=== PATIENT | female | born 1960 | race Hispanic/Latino ===

== ENCOUNTER 2016-09-28 13:29 | Emergency (ER) | payer MEDICARE ==
[2016-09-28] MEDS ORDERED: ATIVAN IV ONE (14:12)
--- NOTE | 2016-09-28 14:22 | Emergency Department Report ---
HPI - General Chief Complaint: Seizure Time Seen by Provider: 09/28/16 14:00 - HPI HPI: Room 8 The patient is a 56-year-old female presenting with a chief complaint of seizure. The patient states she came to the emergency department today because she has had a seizure. The patient states her last seizure before today was approximately 2 months ago. The patient states she is only taking her Depakote intermittently and not daily. Patient currently states she just feels jittery. Location: Central nervous system Duration: Unknown Quality: [see above] Severity: Unknown Modifying factors: [see above] Context: [see above] Mode of transportation: [not driving] ED Past Medical Hx - Past Medical History Hx GERD: Yes Hx Arthritis: Yes (generalized) Hx Seizures: Yes Hx Psychiatric Treatment: Yes (multiple IP and OP tx, BiPolar, PTSD) Hx COPD: Yes Hx HIV: Yes Additional medical history: Chronic Back Pain (herniated disc). HIV positive has never had an elevated viral load or low T cells. Has never been on medication. pneumonia, Hep C - Surgical History Additional Surgical History: Rotator Cuff. Hysterectomy 2003. Elbow Surgery - Family History Family history: no significant - Social History Smoking Status: Current Every Day Smoker (1/2 pack per day) Substance Use Type: None (denies illicit drug use) - Medications Home Medications: Home Medications Medication Instructions Recorded Confirmed Last Taken Type Mirtazapine [Remeron] 45 mg PO QHS 02/15/13 03/16/16 07/05/14 History Gabapentin [Neurontin] 600 mg PO Q8HR 03/16/16 03/16/16 Unknown History Tizanidine HCl [Zanaflex] 2 mg PO TID PRN 03/16/16 03/16/16 Unknown History clonazePAM [clonazePAM] 1 tab PO TID 03/16/16 03/16/16 Unknown History ALBUTEROL Inhaler [ProAir HFA 2 puff IH QID PRN #1 inhalation 04/02/16 Unknown Rx Inhaler] Levofloxacin [Levaquin TAB] 500 mg PO QDAY #7 tablet 04/02/[address] [Depakote Dr] 500 mg PO TID #90 tablet 09/28/16 Unknown Rx ED Review of Systems ROS: Stated complaint: SEIZURE Other details as noted in HPI Comment: All other systems reviewed and negative Constitutional: denies: chills, fever Eyes: denies: eye pain, eye discharge, vision change ENT: denies: ear pain, throat pain Respiratory: denies: cough, shortness of breath, wheezing Cardiovascular: denies: chest pain, palpitations Endocrine: no symptoms reported Gastrointestinal: denies: abdominal pain, nausea, diarrhea Genitourinary: denies: urgency, dysuria, discharge Musculoskeletal: denies: back pain, joint swelling, arthralgia Skin: denies: rash, lesions Neurological: other (seizure, feels jittery) Psychiatric: denies: anxiety, depression Hematological/Lymphatic: denies: easy bleeding, easy bruising Physical Exam - Physical Exam Vital Signs: Vital Signs 09/28/16 13:39 Temperature 98.7 F Pulse Rate 100 H Respiratory 14 Rate Blood Pressure 128/81 O2 Sat by Pulse 97 Oximetry Physical Exam: GENERAL: The patient is well-developed well-nourished female lying on stretcher not appearing to be in acute distress. [] HEENT: Normocephalic. Atraumatic. Extraocular motions are intact. Patient has moist mucous membranes. NECK: Supple. No meningitic signs are noted. Trachea midline CHEST/LUNGS: Clear to auscultation. There is no respiratory distress noted. HEART/CARDIOVASCULAR: Regular. There is no tachycardia. There is no gallop rub or murmur. ABDOMEN: Abdomen is soft, nontender. Patient has normal bowel sounds. There is no abdominal distention. SKIN: There is no rash. There is no edema. There is no diaphoresis. NEURO: The patient is awake, alert, and oriented. The patient is cooperative. The patient has no focal neurologic deficits. The patient has normal speech. Cranial nerves II through XII grossly intact, no drift MUSCULOSKELETAL: There is no evidence of acute injury. ED Course Vital Signs 09/28/16 13:39 Temperature 98.7 F Pulse Rate 100 H Respiratory 14 Rate Blood Pressure 128/81 O2 Sat by Pulse 97 Oximetry ED Medical Decision Making - Lab Data Result diagrams: 09/28/16 15:05 09/28/16 15:05 Laboratory Tests 09/28/16 09/28/16 09/28/16 15:05 15:05 15:05 WBC 8.1 RBC 4.97 Hgb 14.7 H Hct 45.2 H MCV 91 MCH 30 MCHC 33 RDW 13.5 Plt Count 248 Lymph % (Auto) 14.9 [place] % (Auto) 7.0 Eos % (Auto) 0.2 Baso % (Auto) 0.2 Lymph # 1.2 [place] # 0.6 Eos # 0.0 Baso # 0.0 Seg Neutrophils % 77.7 H Seg Neutrophils # 6.3 Sodium 140 Potassium 4.4 Chloride 99.7 Carbon Dioxide 27 Anion Gap 18 BUN 11 Creatinine 0.8 Estimated GFR > 60 BUN/Creatinine Ratio 13.75 Glucose 96 Calcium 10.0 Magnesium 1.9 Valproic Acid < 2.8 L - Differential Diagnosis epilepsy Critical care attestation.: If time is entered above; I have spent that time in minutes in the direct care of this critically ill patient, excluding procedure time. ED Disposition Clinical Impression: Seizure disorder, Seizure secondary to subtherapeutic anticonvulsant medication Disposition: DISCHARGED TO HOME OR SELFCARE Is pt being admited?: No Does the pt Need Aspirin: No Condition: Stable Instructions: Epilepsy (ED) Additional Instructions: Return to the emergency department immediately should you develop worsening symptoms, fever, inability to tolerate food or liquid or any other concerns. Prescriptions: Divalproex [Depakote ] 500 mg PO TID #90 tablet Referrals: PRIMARY CARE, [Primary Care Provider] - 3-5 Days UZMA AL MD [Staff Physician] - 3-5 Days (Dr. Al is a neurologist. Please follow up with him for further evaluation) Time of Disposition: 16:18
[2016-09-28 15:34] LABS: Anion Gap 18 mmol/L; BUN/Creatinine Ratio 13.75; Blood Urea Nitrogen 11 mg/dL (7-17); Carbon Dioxide 27 mmol/L (22-30); Chloride 99.7 mmol/L (98-107); Glucose 96 mg/dL (65-100); Magnesium 1.9 mg/dL (1.7-2.3); Potassium 4.4 mmol/L (3.6-5.0); Sodium 140 mmol/L (137-145)
[2016-09-28 15:43] LABS: Basophils % (Auto) 0.2 % (0.0-1.8); Eosinophils % (Auto) 0.2 % (0.0-4.3); Hematocrit 45.2 % (30.3-42.9); Hemoglobin 14.7 gm/dl (10.1-14.3); Mean Corpuscular HGB Conc 33 % (30-34); Mean Corpuscular Hemoglobin 30 pg (28-32); Mean Corpuscular Volume 91 fl (79-97); Platelet Count 248 K/mm3 (140-440); Red Blood Count 4.97 M/mm3 (3.65-5.03); Red Cell Distribution Width 13.5 % (13.2-15.2); White Blood Count 8.1 K/mm3 (4.5-11.0)
[2016-09-28] MEDS ORDERED: DepaCON 500 MG in NACL 0.9% 100 ML IV ONE (16:13)
[2016-09-28] MEDS ORDERED: KEPPRA 1,000 MG/NS 0.75% 100ML 1,000 MG/100 ML BAG IV ONE (16:13)
[2016-09-28 19:02] VITALS: BP 122/68
== END 2016-09-28 19:04 | disposition home or self-care (01) ==
LOC: ED 13:29
DX: G40.909 Epilepsy, unspecified, not intractable, without status epilepticus (principal); R79.1 Abnormal coagulation profile; F17.210 Nicotine dependence, cigarettes, uncomplicated; K21.9 Gastro-esophageal reflux disease without esophagitis; M19.90 Unspecified osteoarthritis, unspecified site; J44.9 Chronic obstructive pulmonary disease, unspecified; G89.29 Other chronic pain; J18.9 Pneumonia, unspecified organism
CPT/HCPCS: 36415; 80048; 80164; 83735; 85025; 96365; 96366; 96368; 96375; 99284; J1953; J2060

== ENCOUNTER 2017-01-23 07:58 | Emergency (ER) | payer MEDICARE ==
[2017-01-23 09:20] LABS: Chloride 105.9 mmol/L (98-107); Potassium 5.5 mmol/L (3.6-5.0)
[2017-01-23] MEDS ORDERED: D50W (25GM) IV ONE (10:23)
[2017-01-23] MEDS ORDERED: BACTRIM DS PO ONE (10:23)
[2017-01-23] MEDS ORDERED: KIONEX PO ONE (10:23)
[2017-01-23] MEDS ORDERED: PROVENTIL IH ONE (10:23)
[2017-01-23] MEDS ORDERED: PROTONIX PO ONE (10:23)
--- NOTE | 2017-01-23 10:27 | Emergency Department Report ---
ED General Adult HPI - General Chief complaint: Medical Clearance Stated complaint: AMS Time Seen by Provider: 01/23/17 10:16 Source: patient, RN notes reviewed, old records reviewed Mode of arrival: Stretcher Limitations: No Limitations - History of Present Illness Initial comments: This is a 56-year-old female. She is previously unknown to me. She is sent to the ER for evaluation of hyperkalemia. Past medical history includes eczema, hepatitis C, HIV, gastroesophageal reflux disease, chronic pain secondary to DJD. Medications include the following: Protonix, Bactrim, hydrocortisone cream, Depakote, Remeron, subutex, latuda The patient is sent to the ER for evaluation of incidental hyperkalemia noted on laboratory studies. The patient denies headache, neck pain, chest pain, abdominal pain, shortness of breath, irritative and obstructive urinary symptoms. Her only complaint is chronic back pain, which is not new, worsening or different. She reports no change in her urinary output. Patient recently had laboratory studies drawn which demonstrated hyperkalemia, with a potassium of 6.7. She was sent to the ER for further evaluation and management. She reports that her only new medication is latuda. Improves with: none Worsens with: none Associated Symptoms: denies other symptoms, other (patient complains of chronic back pain, which is not new, worsening or different) - Related Data Home Medications Medication Instructions Recorded Confirmed Last Taken Mirtazapine [Remeron] 45 mg PO QHS 02/15/13 03/16/16 07/05/14 Gabapentin [Neurontin] 600 mg PO Q8HR 03/16/16 03/16/16 Unknown Tizanidine HCl [Zanaflex] 2 mg PO TID PRN 03/16/16 03/16/16 Unknown clonazePAM [clonazePAM] 1 tab PO TID 03/16/16 03/16/16 Unknown Previous Rx's Medication Instructions Recorded Last Taken Type ALBUTEROL Inhaler [ProAir HFA 2 puff IH QID PRN #1 inhalation 04/02/16 Unknown Rx Inhaler] Levofloxacin [Levaquin TAB] 500 mg PO QDAY #7 tablet 04/02/[address] [Depakote Dr] 500 mg PO TID #90 tablet 09/28/16 Unknown Rx Sodium Polystyrene Sulfonate 15 gm PO QDAY #7 powd.pack 01/23/17 Unknown Rx [Kalexate] Allergies Allergy/AdvReac Type Severity Reaction Status Date / Time cephalexin monohydrate Allergy Hives Verified 09/28/16 13:42 [From Keflex] meperidine HCl [From Demerol] Allergy Seizure Verified 09/28/16 13:42 ED Review of Systems ROS: Stated complaint: AMS Other details as noted in HPI Constitutional: denies: diaphoresis, malaise Eyes: denies: vision change ENT: denies: epistaxis Respiratory: denies: cough Cardiovascular: denies: chest pain Gastrointestinal: denies: abdominal pain Genitourinary: denies: dysuria Musculoskeletal: back pain Skin: denies: rash Neurological: denies: headache Psychiatric: anxiety ED Past Medical Hx - Past Medical History Hx Congestive Heart Failure: No Hx Diabetes: No Hx GERD: Yes Hx Arthritis: Yes (generalized) Hx Seizures: Yes Hx Psychiatric Treatment: Yes (multiple IP and OP tx, BiPolar, PTSD) Hx Asthma: No Hx COPD: Yes Hx HIV: Yes Additional medical history: Chronic Back Pain (herniated disc). HIV positive has never had an elevated viral load or low T cells. Has never been on medication. pneumonia, Hep C - Surgical History Additional Surgical History: Rotator Cuff. Hysterectomy 2003. Elbow Surgery - Social History Smoking Status: Current Every Day Smoker - Medications Home Medications: Home Medications Medication Instructions Recorded Confirmed Last Taken Type Mirtazapine [Remeron] 45 mg PO QHS 02/15/13 03/16/16 07/05/14 History Gabapentin [Neurontin] 600 mg PO Q8HR 03/16/16 03/16/16 Unknown History Tizanidine HCl [Zanaflex] 2 mg PO TID PRN 03/16/16 03/16/16 Unknown History clonazePAM [clonazePAM] 1 tab PO TID 03/16/16 03/16/16 Unknown History ALBUTEROL Inhaler [ProAir HFA 2 puff IH QID PRN #1 inhalation 04/02/16 Unknown Rx Inhaler] Levofloxacin [Levaquin TAB] 500 mg PO QDAY #7 tablet 04/02/[address] [Depakote Dr] 500 mg PO TID #90 tablet 09/28/16 Unknown Rx Sodium Polystyrene Sulfonate 15 gm PO QDAY #7 powd.pack 01/23/17 Unknown Rx [Kalexate] ED Physical Exam - General Limitations: No Limitations General appearance: alert, in no apparent distress - Head Head exam: Present: atraumatic, normocephalic - Eye Eye exam: Present: normal appearance, EOMI. Absent: nystagmus - ENT ENT exam: Present: normal exam, normal orophraynx, mucous membranes moist, normal external ear exam - Neck Neck exam: Present: normal inspection, full ROM. Absent: tenderness, meningismus - Respiratory Respiratory exam: Present: normal lung sounds bilaterally. Absent: respiratory distress, wheezes, rales, rhonchi, stridor, chest wall tenderness, accessory muscle use, decreased breath sounds, prolonged expiratory - Cardiovascular Cardiovascular Exam: Present: regular rate, normal rhythm, normal heart sounds. Absent: bradycardia, tachycardia, irregular rhythm, systolic murmur, diastolic murmur, rubs, gallop - GI/Abdominal GI/Abdominal exam: Present: soft, normal bowel sounds. Absent: distended, tenderness, guarding, rebound, rigid, pulsatile mass - Extremities Exam Extremities exam: Present: normal inspection, full ROM, normal capillary refill. Absent: pedal edema, joint swelling, calf tenderness - Back Exam Back exam: Present: normal inspection, full ROM. Absent: tenderness, CVA tenderness (R), CVA tenderness (L), muscle spasm, paraspinal tenderness, vertebral tenderness - Neurological Exam Neurological exam: Present: alert, oriented X3, normal gait, other (Extraocular movements intact. Tongue midline. No facial droop. Facial sensation intact to light touch in the V1, V2, V3 distribution bilaterally. 5 and 5 strength in 4 extremities.. Sensation is intact to light touch in 4 extremities.). Absent : motor sensory deficit - Psychiatric Psychiatric exam: Present: anxious - Skin Skin exam: Present: warm, dry, intact, normal color. Absent: rash ED Course Vital Signs 01/23/17 01/23/17 01/23/17 07:54 08:00 08:30 Temperature 98.0 F Pulse Rate 107 H 102 H Respiratory 15 12 Rate Blood Pressure 135/89 135/89 126/83 O2 Sat by Pulse 95 Oximetry 01/23/17 01/23/17 01/23/17 09:00 09:30 10:29 Temperature Pulse Rate 93 H 100 H 95 H Respiratory 11 L 10 L 12 Rate Blood Pressure 125/89 122/89 122/89 O2 Sat by Pulse 98 98 97 Oximetry 01/23/17 01/23/17 01/23/17 10:30 11:00 11:32 Temperature Pulse Rate 103 H 97 H 115 H Respiratory 13 12 14 Rate Blood Pressure 125/87 132/93 146/86 O2 Sat by Pulse 96 97 93 Oximetry 01/23/17 12:00 Temperature Pulse Rate 103 H Respiratory 13 Rate Blood Pressure 146/86 O2 Sat by Pulse 97 Oximetry - Reevaluation(s) Reevaluation #1: 01/23/17 20:09 prior to discharge, the patient did have some symptoms of narcotic withdrawal. She was treated symptomatically, her symptoms resolved, and she was able to tolerate liquid feeds. ED Medical Decision Making - Lab Data Result diagrams: 01/23/17 08:52 Vital Signs 01/23/17 01/23/17 01/23/17 07:54 08:00 08:30 Temperature 98.0 F Pulse Rate 107 H 102 H Respiratory 15 12 Rate Blood Pressure 135/89 135/89 126/83 O2 Sat by Pulse 95 Oximetry 01/23/17 01/23/17 01/23/17 09:00 10:29 10:30 Temperature Pulse Rate 93 H 95 H 103 H Respiratory 11 L 12 13 Rate Blood Pressure 125/89 122/89 125/87 O2 Sat by Pulse 98 97 96 Oximetry Lab Results 01/23/17 Range/Units 08:52 Sodium 141 (137-145) mmol/L Potassium 5.5 H (3.6-5.0) mmol/L Chloride 105.9 (98-107) mmol/L Carbon Dioxide 22 (22-30) mmol/L Anion Gap 19 mmol/L BUN 29 H (7-17) mg/dL Creatinine 1.0 (0.7-1.2) mg/dL Estimated GFR 58 ml/min BUN/Creatinine Ratio 29.00 % Glucose 84 (65-100) mg/dL Calcium 9.0 (8.4-10.2) mg/dL - EKG Data 01/23/17 11:12 sinus tachycardia, 103 bpm, normal axis, QTC 471 ms, having chest pain, not morphologically consistent with STEMI, - Medical Decision Making Differential diagnosis: Laboratory error, renal insufficiency, dehydration, incidental hyperkalemia Assessment and plan: 56-year-old female with new-onset hyperkalemia in the context of normal renal function. Renal function in this ER demonstrates femoral creatinine, with a mildly elevated potassium of 5.5. The patient is afebrile with reassuring vital signs and her tachycardia has resolved my physical examination. She will be treated empirically with Kayexalate, albuterol, dextrose, insulin. She will be discharged with one week of Kayexalate prescription. Review of her prescription medications does not indicate any agents that would predispose to hyperkalemia, with the exception of her Bactrim.. She is suitable to return to her psychiatric facility. She is on Bactrim for her HIV, and therefore she should follow up with her infectious disease specialist to be evaluated for suitable alternative for prophylaxis. Critical care attestation.: If time is entered above; I have spent that time in minutes in the direct care of this critically ill patient, excluding procedure time. ED Disposition Clinical Impression: Hyperkalemia Disposition: DC/TX-65 PSY HOSP/PSY UNIT Is pt being admited?: No Does the pt Need Aspirin: No Condition: Stable Additional Instructions: continue current outpatient medications. Follow up with an infectious disease specialist within the next 5-7 days. Bactrim medication/prophylaxis may predispose to hyperkalemia. Patient's last day of Bactrim ingestion is today, January 23. Take the Kayexalate as directed. Have repeat laboratory studies drawn in the next 4-5 days. Specifically, have a repeat basic metabolic panel drawn to assess for potassium levels and renal function. Bactrim is the most likely etiology for the patient's hyperkalemia. Return to the ER right away with fevers, chills, chest pain, shortness of breath, intractable nausea or vomiting, confusion, inability to tolerate liquid feeds. Prescriptions: Sodium Polystyrene Sulfonate [Kalexate] 15 gm PO QDAY #7 powd.pack Referrals: PRIMARY CAREMD [Primary Care Provider] - 3-5 Days ANUPAM DUEÑAS MD [Staff Physician] - 3-5 Days ALCIRA CONTRERAS MD [Staff Physician] - 3-5 Days
[2017-01-23] MEDS ORDERED: ATIVAN IM ONE (11:38)
[2017-01-23] MEDS ORDERED: CATAPRES PO ONE (11:38)
[2017-01-23] MEDS ORDERED: ATIVAN ONE (11:40)
[2017-01-23] MEDS ORDERED: CATAPRES ONE (11:41)
[2017-01-23 12:22] VITALS: BP 146/86
== END 2017-01-23 12:20 ==
LOC: ED 07:58
DX: E87.5 Hyperkalemia (principal); K21.9 Gastro-esophageal reflux disease without esophagitis; J44.9 Chronic obstructive pulmonary disease, unspecified; F17.200 Nicotine dependence, unspecified, uncomplicated
CPT/HCPCS: 36415; 80048; 82962; 93005; 93010; 96372; 96374; 96375; 99284; J2060; J1815

== ENCOUNTER 2017-10-10 12:14 | Emergency (ER) | payer MEDICARE ==
[2017-10-10] MEDS ORDERED: NORCO 5/325 PO ONE (14:59)
[2017-10-10] MEDS ORDERED: XYLOCAINE 1% 20 mL INFILTRATI ONE (14:59)
--- NOTE | 2017-10-10 15:01 | Emergency Department Report ---
Abscess Boil HPI - HPI Chief Complaint: Skin/Abscess/Foreign Body Stated Complaint: ABCESS IN PRIVATE AREA Time Seen by Provider: 10/10/17 14:58 Duration: >1 Week Location: Other (labial) Severity: Moderate History: Yes Pain, Yes Purulent Drainage, Yes Previous History, No Fever, No Numbness, No Foreign Body, No Insect Bite HPI: Pt has had abscess to R groin x 2 weeks that drained some a few days ago but has started to enlarge again. Home Medications: Home Medications Medication Instructions Recorded Confirmed Last Taken Mirtazapine [Remeron] 45 mg PO QHS 02/15/13 03/16/16 07/05/14 Gabapentin [Neurontin] 600 mg PO Q8HR 03/16/16 03/16/16 Unknown Tizanidine HCl [Zanaflex] 2 mg PO TID PRN 03/16/16 03/16/16 Unknown clonazePAM 1 tab PO TID 03/16/16 03/16/16 Unknown Previous Rx's Medication Instructions Recorded Last Taken Type ALBUTEROL Inhaler [ProAir HFA 2 puff IH QID PRN #1 inhalation 04/02/16 Unknown Rx Inhaler] Levofloxacin [Levaquin TAB] 500 mg PO QDAY #7 tablet 04/02/[address] [Kaye Antonio] 500 mg PO TID #90 tablet 09/28/16 Unknown Rx Sodium Polystyrene Sulfonate 15 gm PO QDAY #7 powd.pack 01/23/17 Unknown Rx [Kalexate] Acetaminophen/Codeine [Tylenol 1 tab PO Q6H PRN #12 tab 10/10/17 Unknown Rx /Codeine # 3 tab] Sulfamethoxazole/Trimethoprim 1 each PO BID #20 tablet 10/10/17 Unknown Rx [Bactrim DS TAB] Allergies/Adverse Reactions: Allergies Allergy/AdvReac Type Severity Reaction Status Date / Time cephalexin monohydrate Allergy Hives Verified 10/10/17 12:16 [From Keflex] meperidine HCl [From Demerol] Allergy Seizure Verified 10/10/17 12:16 ED Review of Systems ROS: Stated complaint: ABCESS IN PRIVATE AREA Other details as noted in HPI Comment: All other systems reviewed and negative Constitutional: denies: chills, fever Eyes: denies: eye pain, eye discharge, vision change ENT: denies: ear pain, throat pain Respiratory: denies: cough, shortness of breath, wheezing Cardiovascular: denies: chest pain, palpitations Endocrine: no symptoms reported Gastrointestinal: denies: abdominal pain, nausea, diarrhea Genitourinary: denies: urgency, dysuria, discharge Musculoskeletal: denies: back pain, joint swelling, arthralgia Skin: denies: rash, lesions Neurological: denies: headache, weakness, paresthesias Psychiatric: denies: anxiety, depression Hematological/Lymphatic: denies: easy bleeding, easy bruising ED Past Medical Hx - Past Medical History Hx Congestive Heart Failure: No Hx Diabetes: No Hx GERD: Yes Hx Arthritis: Yes (generalized) Hx Seizures: Yes Hx Psychiatric Treatment: Yes (multiple IP and OP tx, BiPolar, PTSD) Hx Asthma: No Hx COPD: Yes Hx HIV: Yes Additional medical history: Chronic Back Pain (herniated disc). HIV positive has never had an elevated viral load or low T cells. Has never been on medication. pneumonia, Hep C - Surgical History Additional Surgical History: Rotator Cuff. Hysterectomy 2003. Elbow Surgery - Social History Smoking Status: Current Every Day Smoker Substance Use Type: None - Medications Home Medications: Home Medications Medication Instructions Recorded Confirmed Last Taken Type Mirtazapine [Remeron] 45 mg PO QHS 02/15/13 03/16/16 07/05/14 History Gabapentin [Neurontin] 600 mg PO Q8HR 03/16/16 03/16/16 Unknown History Tizanidine HCl [Zanaflex] 2 mg PO TID PRN 03/16/16 03/16/16 Unknown History clonazePAM 1 tab PO TID 03/16/16 03/16/16 Unknown History ALBUTEROL Inhaler [ProAir HFA 2 puff IH QID PRN #1 inhalation 04/02/16 Unknown Rx Inhaler] Levofloxacin [Levaquin TAB] 500 mg PO QDAY #7 tablet 04/02/[address] [Depmilady Dr] 500 mg PO TID #90 tablet 09/28/16 Unknown Rx Sodium Polystyrene Sulfonate 15 gm PO QDAY #7 powd.pack 01/23/17 Unknown Rx [Kalexate] Acetaminophen/Codeine [Tylenol 1 tab PO Q6H PRN #12 tab 10/10/17 Unknown Rx /Codeine # 3 tab] Sulfamethoxazole/Trimethoprim 1 each PO BID #20 tablet 10/10/17 Unknown Rx [Bactrim DS TAB] ED Abscess Boil Physical Exam - Exam General: Vital signs noted. No distress. Alert and acting appropriately. Size: 5 cm (R labia) Exam: Yes Tenderness, Yes Fluctuance, Yes Surrounding Cellulites/Erythema, Yes Normal Neurologic Exam, Yes Normal Circulation, No Lymphangitis, No Crepitation , No Heart Murmur I & D Note - I & D Note I & D Note: Exam and procedure chaperoned by BEATRICE Mitchell. Area was prepped and draped in usual sterile fashion, betadine x 3. 4 cc of 1% lidocaine was used for local anesthesia. A small incision was made with an 11 blade and a small amount of drainage expressed. Pt tolerated procedure with difficulty. Dressing applied. ED Course Vital Signs 10/10/17 12:16 Temperature 97.9 F Pulse Rate 104 H Respiratory 18 Rate Blood Pressure 146/91 O2 Sat by Pulse 96 Oximetry - Reevaluation(s) Reevaluation #1: 10/10/17 15:42 Pt stable for d/c. Critical care attestation.: If time is entered above; I have spent that time in minutes in the direct care of this critically ill patient, excluding procedure time. ED Medical Decision Making - Medical Decision Making Pt presents with R labial abscess, small amount of additional drainage with I& D. Supportive care discussed. Return precautions given. - Differential Diagnosis abscess, cellulitis ED Disposition Clinical Impression: Labial abscess Disposition: DC- TO HOME OR SELFCARE Is pt being admited?: No Condition: Good Instructions: Abscess (ED) Prescriptions: Acetaminophen/Codeine [Tylenol /Codeine # 3 tab] 1 tab PO Q6H PRN #12 tab PRN Reason: Pain Sulfamethoxazole/Trimethoprim [Bactrim DS TAB] 1 each PO BID #20 tablet Referrals: PRIMARY CARE, [Primary Care Provider] - 3-5 Days ALCIRA CONTRERAS MD [Staff Physician] - 3-5 Days ELFEGO BROTHERS MD [Staff Physician] - 3-5 Days Time of Disposition: 15:43
[2017-10-10 16:08] VITALS: BP 135/85
== END 2017-10-10 16:08 | disposition home or self-care (01) ==
LOC: ED 12:14
DX: N76.4 Abscess of vulva (principal); Z88.5 Allergy status to narcotic agent; K21.9 Gastro-esophageal reflux disease without esophagitis; J44.9 Chronic obstructive pulmonary disease, unspecified; M54.9 Dorsalgia, unspecified; G89.29 Other chronic pain; F17.200 Nicotine dependence, unspecified, uncomplicated; F31.9 Bipolar disorder, unspecified; F43.10 Post-traumatic stress disorder, unspecified

== ENCOUNTER 2017-11-09 12:10 | Emergency (ER) | payer MEDICARE ==
[2017-11-09 13:07] LABS: Hematocrit 45.5 % (30.3-42.9); Hemoglobin 15.2 gm/dl (10.1-14.3); Mean Corpuscular HGB Conc 33 % (30-34); Mean Corpuscular Hemoglobin 30 pg (28-32); Mean Corpuscular Volume 88 fl (79-97); Platelet Count 213 K/mm3 (140-440); Red Blood Count 5.15 M/mm3 (3.65-5.03); Red Cell Distribution Width 13.7 % (13.2-15.2)
[2017-11-09 13:34] LABS: BUN/Creatinine Ratio 13; Blood Urea Nitrogen 12 mg/dL (7-17); Calcium 9.4 mg/dL (8.4-10.2); Hemolysis Index 72
--- NOTE | 2017-11-09 13:57 | Emergency Department Report ---
ED Seizure HPI - General Chief Complaint: Seizure Stated Complaint: SEIZURE Time Seen by Provider: 11/09/17 13:38 Source: patient, EMS (ems notes not available at time of chart dictation), RN notes reviewed, old records reviewed Mode of arrival: Stretcher Limitations: No Limitations - History of Present Illness Initial Comments: This is a 57-year-old female whom I have evaluated in the past. Past medical history includes eczema, hepatitis C, HIV; CD4 count of 1200, viral load of less than 400, seizure disorder, taking valproic acid and Klonopin. Patient reports compliance with her valproic acid. She reports that she ran out of her Klonopin one week ago. She takes 1 mg 3 times daily. She presents to the ER today with a complaint of seizure. She was in bed. There is no trauma. She reports that she ran out of her Klonopin 1 week ago. She denies headache, neck pain, chest pain, abdominal pain, shortness of breath , urinary symptoms. Her last seizure besides today was one week ago. She complains of body aches after her seizure. MD Complaint: seizure -: Sudden Description of Episode: tonic-clonic movement -: second(s) Trauma: No Seizure History: known seizure disorder Place: home Associated Symptoms: other (complaints of body aches). denies: chest pain, confusion, cough, diaphoresis, fever/chills, loss of appetite, malaise, rash, shortness of breath, syncope, weakness, tongue injury, shoulder dislocation - Related Data Home Medications Medication Instructions Recorded Confirmed Last Taken Mirtazapine [Remeron] 45 mg PO QHS 02/15/13 03/16/16 07/05/14 Gabapentin [Neurontin] 600 mg PO Q8HR 03/16/16 03/16/16 Unknown Tizanidine HCl [Zanaflex] 2 mg PO TID PRN 03/16/16 03/16/16 Unknown clonazePAM 1 tab PO TID 03/16/16 03/16/16 Unknown Previous Rx's Medication Instructions Recorded Last Taken Type ALBUTEROL Inhaler [ProAir HFA 2 puff IH QID PRN #1 inhalation 04/02/16 Unknown Rx Inhaler] Levofloxacin [Levaquin TAB] 500 mg PO QDAY #7 tablet 04/02/16 Unknown Rx Divalproex [Kaye Antonio] 500 mg PO TID #90 tablet 09/28/16 Unknown Rx Sodium Polystyrene Sulfonate 15 gm PO QDAY #7 powd.pack 01/23/17 Unknown Rx [Kalexate] Acetaminophen/Codeine [Tylenol 1 tab PO Q6H PRN #12 tab 10/10/17 Unknown Rx /Codeine # 3 tab] Sulfamethoxazole/Trimethoprim 1 each PO BID #20 tablet 10/10/17 Unknown Rx [Bactrim DS TAB] Divalproex Sodium [Depakote] 1,000 mg PO QHS #60 tablet. 11/09/17 Unknown Rx clonazePAM [Klonopin] 1 mg PO TID #21 tablet 11/09/17 Unknown Rx Allergies Allergy/AdvReac Type Severity Reaction Status Date / Time cephalexin monohydrate Allergy Hives Verified 11/09/17 15:21 [From Keflex] meperidine HCl [From Demerol] Allergy Seizure Verified 11/09/17 15:21 ED Review of Systems ROS: Stated complaint: SEIZURE Other details as noted in HPI Comment: All other systems reviewed and negative Musculoskeletal: myalgia Neurological: other (seizure) ED Past Medical Hx - Past Medical History Previous Medical History?: Yes Hx Congestive Heart Failure: No Hx Diabetes: No Hx GERD: Yes Hx Arthritis: Yes (generalized) Hx Seizures: Yes Hx Psychiatric Treatment: Yes (multiple IP and OP tx, BiPolar, PTSD) Hx Asthma: No Hx COPD: Yes Hx HIV: Yes Additional medical history: Chronic Back Pain (herniated disc). HIV positive has never had an elevated viral load or low T cells. Has never been on medication. pneumonia, Hep C - Surgical History Past Surgical History?: Yes Additional Surgical History: Rotator Cuff. Hysterectomy 2003. Elbow Surgery - Social History Smoking Status: Never Smoker - Medications Home Medications: Home Medications Medication Instructions Recorded Confirmed Last Taken Type Mirtazapine [Remeron] 45 mg PO QHS 02/15/13 03/16/16 07/05/14 History Gabapentin [Neurontin] 600 mg PO Q8HR 03/16/16 03/16/16 Unknown History Tizanidine HCl [Zanaflex] 2 mg PO TID PRN 03/16/16 03/16/16 Unknown History clonazePAM 1 tab PO TID 03/16/16 03/16/16 Unknown History ALBUTEROL Inhaler [ProAir HFA 2 puff IH QID PRN #1 inhalation 04/02/16 Unknown Rx Inhaler] Levofloxacin [Levaquin TAB] 500 mg PO QDAY #7 tablet 04/02/[address] [Depakote Dr] 500 mg PO TID #90 tablet 09/28/16 Unknown Rx Sodium Polystyrene Sulfonate 15 gm PO QDAY #7 powd.pack 01/23/17 Unknown Rx [Kalexate] Acetaminophen/Codeine [Tylenol 1 tab PO Q6H PRN #12 tab 10/10/17 Unknown Rx /Codeine # 3 tab] Sulfamethoxazole/Trimethoprim 1 each PO BID #20 tablet 10/10/17 Unknown Rx [Bactrim DS TAB] Divalproex Sodium [Depakote] 1,000 mg PO QHS #60 tablet.dr 11/09/17 Unknown Rx clonazePAM [Klonopin] 1 mg PO TID #21 tablet 11/09/17 Unknown Rx ED Physical Exam - General Limitations: No Limitations General appearance: alert, in no apparent distress - Head Head exam: Present: atraumatic, normocephalic - Eye Eye exam: Present: normal appearance, PERRL, EOMI, other (visual acuity intact to finger counting, color perception, reading at a close distance). Absent: nystagmus - ENT ENT exam: Present: normal exam, normal orophraynx, mucous membranes moist, normal external ear exam - Neck Neck exam: Present: normal inspection, full ROM - Respiratory Respiratory exam: Present: normal lung sounds bilaterally. Absent: respiratory distress - Cardiovascular Cardiovascular Exam: Present: regular rate, normal rhythm, normal heart sounds. Absent: bradycardia, tachycardia, irregular rhythm, systolic murmur, diastolic murmur, rubs, gallop - GI/Abdominal GI/Abdominal exam: Present: soft, normal bowel sounds. Absent: distended, tenderness, guarding, rebound, rigid, pulsatile mass - Extremities Exam Extremities exam: Present: normal inspection, full ROM, normal capillary refill , other (chronic eczematous lesions are noted in the bilateral upper and lower extremities). Absent: pedal edema, joint swelling, calf tenderness - Back Exam Back exam: Present: normal inspection, full ROM. Absent: paraspinal tenderness , vertebral tenderness - Neurological Exam Neurological exam: Present: alert, oriented X3, CN II-XII intact, normal gait, other (Extraocular movements intact. Tongue midline. No facial droop. Facial sensation intact to light touch in the V1, V2, V3 distribution bilaterally. 5 and 5 strength in 4 extremities.. Sensation is intact to light touch in 4 extremities.). Absent: motor sensory deficit - Psychiatric Psychiatric exam: Present: normal affect, normal mood - Skin Skin exam: Present: warm ED Course Vital Signs 11/09/17 11/09/17 11/09/17 13:07 16:07 18:46 Temperature 98.6 F Pulse Rate 66 84 67 Respiratory 18 20 18 Rate Blood Pressure 141/84 158/95 158/95 [Left] O2 Sat by Pulse 97 98 99 Oximetry - Reevaluation(s) Reevaluation #1: 11/09/17 15:29 Gayla be transferred to the oncoming ER physician, Dr. Richards to follow up on the urinalysis if urinary tract infection is suggested, would discharge with Macrobid. ED Medical Decision Making - Lab Data Result diagrams: 11/09/17 12:41 11/09/17 12:41 Vital Signs 11/09/17 13:07 Temperature 98.6 F Pulse Rate 66 Respiratory 18 Rate Blood Pressure 141/84 [Left] O2 Sat by Pulse 97 Oximetry Lab Results 11/09/17 11/09/17 11/09/17 Range/Units 12:41 12:41 14:27 WBC 6.9 (4.5-11.0) K/mm3 RBC 5.15 H (3.65-5.03) M/mm3 Hgb 15.2 H (10.1-14.3) gm/dl Hct 45.5 H (30.3-42.9) % MCV 88 (79-97) fl MCH 30 (28-32) pg MCHC 33 (30-34) % RDW 13.7 (13.2-15.2) % Plt Count 213 (140-440) K/mm3 Sodium 135 L (137-145) mmol/L Potassium 4.7 (3.6-5.0) mmol/L Chloride 100.6 (98-107) mmol/L Carbon Dioxide 19 L (22-30) mmol/L Anion Gap 20 mmol/L BUN 12 (7-17) mg/dL Creatinine 0.9 (0.7-1.2) mg/dL Estimated GFR > 60 ml/min BUN/Creatinine Ratio 13 % Glucose 91 (65-100) mg/dL Calcium 9.4 (8.4-10.2) mg/dL Total Creatine Kinase 66 (30-135) units/L Valproic Acid (50-100) ug/mL 11/09/ Range/Units 14:27 WBC (4.5-11.0) K/mm3 RBC (3.65-5.03) M/mm3 Hgb (10.1-14.3) gm/dl Hct (30.3-42.9) % MCV (79-97) fl MCH (28-32) pg MCHC (30-34) % RDW (13.2-15.2) % Plt Count (140-440) K/mm3 Sodium (137-145) mmol/L Potassium (3.6-5.0) mmol/L Chloride (98-107) mmol/L Carbon Dioxide (22-30) mmol/L Anion Gap mmol/L BUN (7-17) mg/dL Creatinine (0.7-1.2) mg/dL Estimated GFR ml/min BUN/Creatinine Ratio % Glucose (65-100) mg/dL Calcium (8.4-10.2) mg/dL Total Creatine Kinase (30-135) units/L Valproic Acid 11.6 L (50-100) ug/mL - Medical Decision Making Differential diagnosis, including but not limited to: Benzodiazepine withdrawal seizure, subtherapeutic valproic acid level, breakthrough seizure Assessment and plan: 57-year-old female who is chronically benzodiazepine dependent, with a reported breakthrough seizure and a subtherapeutic valproic acid level. She is afebrile with reassuring vital signs, clinically sober and walks with a steady gait. Her physical exam is otherwise unremarkable. She does not endorse any urinary symptoms. The urinalysis is pending at this time. GCS of 15, NIH score of 0. Patient filled a 30 day supply of her Klonopin on October 15 as per my review of the [place] prescription monitoring program. She reports that she dropped the bottle toilet accidentally a week and a half ago. The patient will be loaded with 1 g of valproic acid, and she will be discharged with a one-week supply of Klonopin and instructed to follow-up with her outpatient primary care physician for further evaluation and management. She is instructed to not drive her car for the next 6 months. Critical care attestation.: If time is entered above; I have spent that time in minutes in the direct care of this critically ill patient, excluding procedure time. ED Disposition Clinical Impression: History of convulsions Disposition: DC-01 TO HOME OR SELFCARE Is pt being admited?: No Does the pt Need Aspirin: No Condition: Good Instructions: Recurrent Seizures Adult (ED) Additional Instructions: Do not drive or operate motor vehicles for the next 6 months. Follow up with her primary care doctor within the next week for additional refill on Klonopin. Return to the ER right away with fevers, chills, lethargy, irritability, projectile vomiting, change in mental status, confusion, inability to tolerate liquid feeds. Prescriptions: Divalproex Sodium [Depakote] 1,000 mg PO QHS #60 tablet. clonazePAM [Klonopin] 1 mg PO TID #21 tablet Referrals: MAMADOU SEYMOUR MD [Primary Care Provider] - 3-5 Days RIP GAITAN MD [Referring] - 3-5 Days ANTONIA GALEAS MD [Staff Physician] - 3-5 Days UZMA KAHN MD [Staff Physician] - 3-5 Days
[2017-11-09] MEDS ORDERED: DepaCON 1,000 MG in NACL 0.9% 100 ML IV ONE (15:13)
[2017-11-09 16:08] VITALS: BP 158/95
[2017-11-09 18:00] LABS: Bacteria,Urine 1+ /HPF (Negative); Bilirubin,Urine NEG (Negative); Blood,Urine NEG (Negative); Color,Urine Yellow (Yellow); Mucus,Urine FEW /HPF; Protein,Urine <15 mg/dL mg/dL (Negative); Urobilinogen,Urine < 2.0 mg/dL (<2.0)
== END 2017-11-09 19:00 | disposition home or self-care (01) ==
LOC: ED 12:10
DX: G40.909 Epilepsy, unspecified, not intractable, without status epilepticus (principal); J44.9 Chronic obstructive pulmonary disease, unspecified; M54.9 Dorsalgia, unspecified; G89.29 Other chronic pain; K21.9 Gastro-esophageal reflux disease without esophagitis; F31.9 Bipolar disorder, unspecified; F43.10 Post-traumatic stress disorder, unspecified; Z87.01 Personal history of pneumonia (recurrent); Z88.1 Allergy status to other antibiotic agents; Z88.5 Allergy status to narcotic agent; Z86.19 Personal history of other infectious and parasitic diseases; Z90.710 Acquired absence of both cervix and uterus
CPT/HCPCS: 36415; 80048; 80164; 81001; 82550; 85027; 96365

== ENCOUNTER 2018-08-24 13:23 | Emergency (ER) | payer MEDICARE ==
--- NOTE | 2018-08-24 13:55 | Emergency Department Report ---
Blank Doc - Documentation Documentation: 58 y/o female abscess right groin. roommate also has abscess to axilla. + MRSA history
[2018-08-24 17:43] VITALS: BP 120/86
--- NOTE | 2018-08-24 17:43 | Emergency Department Report ---
Abscess Boil HPI - HPI Chief Complaint: Skin/Abscess/Foreign Body Stated Complaint: ABSCESS Time Seen by Provider: 08/24/18 13:52 History: Yes Pain, Yes Purulent Drainage, Yes Previous History, No Fever, No Numbness, No Foreign Body, No Insect Bite HPI: Pt is a 58 yo female who presents to the ED with c/o an abscess to the right labia that began a month ago. She denies any fever, N/V. The patient has a hx of MRSA. She states a week ago she poked it with a needle herself and expressed purulent drainage. She states it now feels like a "knot." The patient states she has been scratching the area often due to itching of the skin. Home Medications: Home Medications Medication Instructions Recorded Confirmed Last Taken Mirtazapine [Remeron] 45 mg PO QHS 02/15/13 03/16/16 07/05/14 Gabapentin [Neurontin] 600 mg PO Q8HR 03/16/16 03/16/16 Unknown Tizanidine HCl [Zanaflex] 2 mg PO TID PRN 03/16/16 03/16/16 Unknown clonazePAM 1 tab PO TID 03/16/16 03/16/16 Unknown Previous Rx's Medication Instructions Recorded Last Taken Type ALBUTEROL Inhaler (OR & NICU) 2 puff IH QID PRN #1 inhalation 04/02/16 Unknown Rx [ProAir HFA Inhaler] levoFLOXacin [Levaquin TAB] 500 mg PO QDAY #7 tablet 04/02/[address] [Depakote Dr] 500 mg PO TID #90 tablet 09/28/16 Unknown Rx Sodium Polystyrene Sulfonate 15 gm PO QDAY #7 powd.pack 01/23/17 Unknown Rx [Kalexate] Acetaminophen/Codeine [Tylenol 1 tab PO Q6H PRN #12 tab 10/10/17 Unknown Rx /Codeine # 3 tab] Sulfamethoxazole/Trimethoprim 1 each PO BID #20 tablet 10/10/17 Unknown Rx [Bactrim DS TAB] Divalproex Sodium [Depakote] 1,000 mg PO QHS #60 tablet.dr 11/09/17 Unknown Rx clonazePAM [Klonopin] 1 mg PO TID #21 tablet 11/09/17 Unknown Rx Clotrimazole [Antifungal] 14 gm TP BID #1 cream..g. 08/24/18 Unknown Rx Hydroxyzine HCl [hydrOXYzine] 25 mg PO TID PRN #14 tablet 08/24/18 Unknown Rx Sulfamethoxazole/Trimethoprim 1 each PO BID 10 Days #20 tablet 08/24/18 Unknown Rx [Bactrim DS TAB] Allergies/Adverse Reactions: Allergies Allergy/AdvReac Type Severity Reaction Status Date / Time cephalexin monohydrate Allergy Hives Verified 11/09/17 15:21 [From Keflex] meperidine HCl [From Demerol] Allergy Seizure Verified 11/09/17 15:21 ED Review of Systems ROS: Stated complaint: ABSCESS Other details as noted in HPI Comment: All other systems reviewed and negative ED Past Medical Hx - Past Medical History Hx Congestive Heart Failure: No Hx Diabetes: No Hx GERD: Yes Hx Arthritis: Yes (generalized) Hx Seizures: Yes Hx Psychiatric Treatment: Yes (multiple IP and OP tx, BiPolar, PTSD) Hx Asthma: No Hx COPD: Yes Hx HIV: Yes Additional medical history: Chronic Back Pain (herniated disc). HIV positive has never had an elevated viral load or low T cells. Has never been on medication. pneumonia, Hep C - Surgical History Additional Surgical History: Rotator Cuff. Hysterectomy 2003. Elbow Surgery - Social History Smoking Status: Current Every Day Smoker Substance Use Type: None - Medications Home Medications: Home Medications Medication Instructions Recorded Confirmed Last Taken Type Mirtazapine [Remeron] 45 mg PO QHS 02/15/13 03/16/16 07/05/14 History Gabapentin [Neurontin] 600 mg PO Q8HR 03/16/16 03/16/16 Unknown History Tizanidine HCl [Zanaflex] 2 mg PO TID PRN 03/16/16 03/16/16 Unknown History clonazePAM 1 tab PO TID 03/16/16 03/16/16 Unknown History ALBUTEROL Inhaler (OR & NICU) 2 puff IH QID PRN #1 inhalation 04/02/16 Unknown Rx [ProAir HFA Inhaler] levoFLOXacin [Levaquin TAB] 500 mg PO QDAY #7 tablet 04/02/[address] [Depakote Dr] 500 mg PO TID #90 tablet 09/28/16 Unknown Rx Sodium Polystyrene Sulfonate 15 gm PO QDAY #7 powd.pack 01/23/17 Unknown Rx [Kalexate] Acetaminophen/Codeine [Tylenol 1 tab PO Q6H PRN #12 tab 10/10/17 Unknown Rx /Codeine # 3 tab] Sulfamethoxazole/Trimethoprim 1 each PO BID #20 tablet 10/10/17 Unknown Rx [Bactrim DS TAB] Divalproex Sodium [Depakote] 1,000 mg PO QHS #60 tablet.dr 11/09/17 Unknown Rx clonazePAM [Klonopin] 1 mg PO TID #21 tablet 11/09/17 Unknown Rx Clotrimazole [Antifungal] 14 gm TP BID #1 cream..g. 08/24/18 Unknown Rx Hydroxyzine HCl [hydrOXYzine] 25 mg PO TID PRN #14 tablet 08/24/18 Unknown Rx Sulfamethoxazole/Trimethoprim 1 each PO BID 10 Days #20 tablet 08/24/18 Unknown Rx [Bactrim DS TAB] ED Abscess Boil Physical Exam - Exam General: Vital signs noted. No distress. Alert and acting appropriately. 2 cm abscess present to the right labia majora Size: 2 cm Exam: Yes Tenderness, Yes Fluctuance (small area of fluctuance, mostly induration), Yes Normal Neurologic Exam, Yes Normal Circulation, No Surrounding Cellulites/Erythema, No Lymphangitis, No Crepitation, No Heart Murmur Exam: pt has multiple areas of excoriations diffusely throught the skin, pt appears to have been scratching in the vaginal area leading to erythema and excoriations. I & D Note - I & D Note I & D Note: Pt was prepped with betadine and drapped. 5 cc of 1% lidocaine was used. 11 blade was used for a 1 cm incision. Very small amount of purulent drainage expressed. irrigated with 10 cc of saline. Due to it being a small area, packing was not necessary. Sterile gauze applied. Pt tolerated well. ED Course Vital Signs 08/24/18 08/24/18 13:37 13:38 Temperature 97.6 F Pulse Rate 100 H Respiratory 14 Rate Blood Pressure 110/75 O2 Sat by Pulse 92 Oximetry Critical care attestation.: If time is entered above; I have spent that time in minutes in the direct care of this critically ill patient, excluding procedure time. ED Medical Decision Making - Medical Decision Making Pt presents to the ED with c/o abscess to the right labia majora. I&D was performed and very small amount of purulent drainage expressed. Will give pt bactrim due to hx of MRSA. Will give pt hydroxyzine for the itching and excessive excoriations. Will also give pt antifungal cream. Advised pt to be evaluated by her pcp in the next 2-3 days. Return to the ED if any new or worsening symptoms. ED Disposition Clinical Impression: Abscess Disposition: DC-01 TO HOME OR SELFCARE Is pt being admited?: No Does the pt Need Aspirin: No Condition: Stable Instructions: Abscess (ED) Additional Instructions: Follow up with primary care provider in the next 2-3 days. Take all medication as prescribed. Return to the emergency room if any new or worsening symptoms. Prescriptions: Clotrimazole [Antifungal] 14 gm TP BID #1 cream..g. Sulfamethoxazole/Trimethoprim [Bactrim DS TAB] 1 each PO BID 10 Days #20 tablet Hydroxyzine HCl [hydrOXYzine] 25 mg PO TID PRN #14 tablet PRN Reason: Itching Referrals: PAT DICKERSON MD [Primary Care Provider] - 2-3 Days Time of Disposition: 17:40 Print Language: KOREAN
== END 2018-08-24 18:01 | disposition home or self-care (01) ==
LOC: ED 13:23
DX: N76.4 Abscess of vulva (principal); K21.9 Gastro-esophageal reflux disease without esophagitis; M19.90 Unspecified osteoarthritis, unspecified site; J44.9 Chronic obstructive pulmonary disease, unspecified; F17.200 Nicotine dependence, unspecified, uncomplicated; Z88.1 Allergy status to other antibiotic agents